=== PATIENT | female | born 1965 | race Caucasian/White ===

== ENCOUNTER 2016-09-04 01:00 | Emergency (ER) | payer OTHER ==
--- NOTE | ~2016-09-04 | ER ---
PATIENT'S NAME: IVELISSE GARRIDO [facility] AGE: 50 Y [address] ROOM: [place] [id number] LOCATION: [facility] ADMIT DATE: 09/04/2016 ER/Outpatient Report DISCHARGE DATE: 09/04/2016 FAMILY PHYSICIAN: PHYSICIAN, NO ATTENDING PHYSICIAN: Eloisa Lee Time of Arrival: 0100 hours. Time of Evaluation: 0125 hours. CHIEF COMPLAINT: This is a 50-year-old female. She was previously healthy. She is in with complaint of a painful swollen area on her left calf. She is concerned about blood clot. HISTORY OF PRESENT ILLNESS: She reports that she flew in from [place] earlier today. She had a 3-hour plane ride followed by a 2-3 hour car ride and that is when she noticed swelling in her calf. PAST MEDICAL HISTORY: She has a history of Raynaud disease and asthma. She states her asthma has been flared up a little bit for the past couple of weeks. She has been little more short of breath than normal. SOCIAL HISTORY: She is a nonsmoker. PHYSICAL EXAMINATION: GENERAL: Alert, pleasant, cooperative female, in no acute distress. VITAL SIGNS: Stable. SKIN: Warm and dry. Color is normal. HEAD, EARS, EYES, NOSE, AND THROAT: Normal. NECK: Supple. HEART: Regular rate and rhythm without murmur. LUNGS: Clear. Breath sounds are equal. ABDOMEN: Soft. EXTREMITIES: She had a painful, tender nodule on the lateral aspect posteriorly of her left proximal calf. There is no tenderness of the body of the calf. Donovan sign is negative. Rest of her exam is unremarkable. LABORATORY DATA: Venous Doppler was obtained and revealed no superficial or deep venous clotting. ASSESSMENT: PATIENT'S NAME: IVELISSE GARRIDO [facility] AGE: 50 Y [address] ROOM: [place] [id number] LOCATION: [facility] ADMIT DATE: 09/04/2016 ER/Outpatient Report DISCHARGE DATE: 09/04/2016 FAMILY PHYSICIAN: PHYSICIAN, NO ATTENDING PHYSICIAN: Eloisa Lee Inflammation of a superficial varicose vein without thrombosis. PLAN: Compression stockings, elevate. Follow up with her regular doctor as needed. ELOISA LEE MD JDB/modl /[id number] d: 09/05/16 0545 t: 10/03/16 0957, OUTPATIENT REPORT
== END 2016-09-04 02:20 | disposition disaster alternative care site (69) ==
LOC: GMED 01:00
DX: I83.12 Varicose veins of left lower extremity with inflammation (principal)